=== PATIENT | male | born 1950 | race Caucasian/White ===

== ENCOUNTER → 2017-02-19 | Outpatient (CLI) | payer OTHER ==
--- NOTE | 2017-02-20 06:42 | RAD ---
Procedure: XR CHEST 2 VIEWS Exam Date: 02/19/2017 Ordering Provider: Radha Ritter Clinical Indication: HEART FAILURE Comparison: 05/17/2015 Findings: Cardiac silhouette: Enlarged Pulmonary vasculature : Central vascular congestion without baljeet pulmonary edema. Mediastinal contour: Normal Aortic contour: Aortic calcification Focal lung consolidation: None Pleural effusion: None Pneumothorax: None Acute bony or soft tissue abnormality: None Impression: 1. No acute abnormalities in the chest. 2. Cardiomegaly. Electronically signed by: Jason Church MD 02/20/2017 6:41 AM CDT
== END | disposition home or self-care (01) ==
LOC: YCFC.O 16:31
PROVIDERS: ATTEND Nurse Practitioner Family
DX: I50.9 Heart failure, unspecified (principal)

== ENCOUNTER → 2017-05-08 | Outpatient (CLI) | payer MEDICARE, OTHER ==
--- NOTE | 2017-05-09 05:46 | RAD ---
Procedure: XR CHEST 2 VIEWS Exam date: 05/08/2017 1:13 PM CDT Ordering Provider: BRIAN Campos Clinical Indication: DYSPNEA Comparison: February 19, 2017 Findings: Cardiomegaly. The lungs are clear. No pleural effusion or pneumothorax. Osseous structures are nonacute. Thoracic spondylosis. No evidence of active tuberculosis. Impression: Cardiomegaly. Otherwise, no acute cardiopulmonary process. Electronically signed by: Feliberto Ricardo MD 05/09/2017 5:45 AM CDT
== END | disposition home or self-care (01) ==
LOC: YCFC.O 12:59
PROVIDERS: ATTEND Nurse Practitioner Family
DX: R06.9 Unspecified abnormalities of breathing (principal); R06.00 Dyspnea, unspecified

== ENCOUNTER → 2017-08-04 | Outpatient (CLI) | payer MEDICARE, OTHER ==
--- NOTE | 2017-08-05 09:00 | RAD ---
EXAM DESCRIPTION: Chest,2 Views CLINICAL HISTORY: 66 years Male, CHF COMPARISON: 05/08/2017 IMPRESSION: The heart is enlarged, with mild central pulmonary vascular congestion. Moderate atherosclerotic plaque in the thoracic aorta. Mild perihilar interstitial thickening is demonstrated, most consistent with CHF with mild interstitial edema. An atypical infectious/inflammatory process may have a similar appearance. No confluent airspace consolidation, pleural effusion, or pneumothorax. Multilevel thoracic spondylosis. No acute osseous abnormality. Electronically signed by: Joseph Herring MD 08/05/2017 8:58 AM [employer]
== END | disposition home or self-care (01) ==
LOC: YCFC.O 11:17
PROVIDERS: ATTEND Nurse Practitioner Family
DX: I50.9 Heart failure, unspecified (principal)

== ENCOUNTER → 2018-01-06 | Outpatient (CLI) | payer MEDICARE, OTHER ==
--- NOTE | 2018-01-06 16:09 | CT ---
EXAM DESCRIPTION: Sinuses: Computed Tomography. CLINICAL HISTORY: CHRONIC SINUSITIS COMPARISON: None Available. TECHNIQUE: Spiral, axial 2.5 mm scans through the maxillofacial bones without contrast. Coronal and sagittal 2.0 reconstructions. Total Exam DLP: 235.87 mGy-cm. This exam was performed according to our departmental CT dose-optimization program which includes automated exposure control, adjustment of the mA and/or kV according to patient size and/or use of iterative reconstruction technique; to reduce radiation dose to as low as reasonably achievable (ALARA). FINDINGS: Complete opacification of the left maxillary antrum with soft tissue expanding into the anterior left ethmoid air cells and the left nasal passageway. Widening of the medial ostium with complete obstruction of the left ostiomeatal unit. Minimal mucoperiosteal thickening right antrum with narrowing of the right ostiomeatal unit. Remaining ethmoid air cells are patent. Mucoperiosteal thickening bilateral frontal air cells without air-fluid levels. Sphenoid air cells are well aerated bilaterally and the sphenoid nasal ostia are patent. Included mastoid air cells are well aerated. Anterior superior left nasal passage passageway partially obstructed. Posterior septum deviated to the left with inferior septal spur impressing on the inferior left turbinate. Anterior septum also deviated to the left. Superior bilateral turbinates are rudimentary bilaterally. Remaining turbinates demonstrate moderate hypertrophy and significant narrowing of the nasal passageway. Radha bullosa in the right middle turbinate. No other bone destruction. IMPRESSION: 1. Acute and chronic sinusitis and complete opacification of the left maxillary antrum with soft tissue extending through the widened ostium into the anterior left ethmoid air cells and the left nasal passage. Complete obstruction of the left ostiomeatal unit. Minimal disease right maxillary antrum with partial obstruction of the right ostiomeatal unit. 2. Chronic sinusitis frontal air cells with sphenoid air cells well aerated. Remaining ethmoid air cells well aerated. 3. Deviation of the septum to the left posteriorly more than anteriorly. Rudimentary superior turbinates. Left septal spur impinges the left middle turbinate. Radha bullosa enlarging the right middle turbinate. Significant bilateral nasal passageway narrowing. Electronically signed by: Miguel Laws MD 01/06/2018 4:07 PM CDT
== END ==
LOC: CT 10:00
PROVIDERS: ATTEND Otolaryngology
DX: J32.8 Other chronic sinusitis (principal)

== ENCOUNTER → 2020-09-20 | Outpatient (CLI) | payer MEDICARE, OTHER | LOC: ECHO 09:07 | PROVIDERS: ATTEND Nurse Practitioner Family | DX: R60.9 Edema, unspecified (principal); I51.7 Cardiomegaly; I31.3 Pericardial effusion (noninflammatory); I34.0 Nonrheumatic mitral (valve) insufficiency; I34.8 Other nonrheumatic mitral valve disorders ==

== ENCOUNTER → 2020-10-13 | Outpatient (CLI) | payer OTHER, MEDICARE ==
--- NOTE | 2020-10-16 07:55 | US ---
EXAM DESCRIPTION: Carotid Duplex: ULTRASOUND. CLINICAL HISTORY: 69 years Male transient cerebral ischemia COMPARISON: None. TECHNIQUE: Transcutaneous scanning utilizing esqueda-scale and Doppler modes to evaluate the bilateral carotid systems and vertebral arteries. Percentage of diameter of stenosis or no stenosis recorded will be based upon NASCET criteria. FINDINGS: Peak systolic/end diastolic velocities (CM-Sec) CCA Right 124/11 Left 101/13. ICA Right proximal 42/9, distal 45/12. Left proximal 47/10, Distal 57/17. Vertebral Right 36/7 Left 34/13. ECA (PS Only) Right 126 left 125. ICA/CCA peak systolic velocity ratio: Right 0.4 Left 0.6 ICA/CCA end diastolic velocity ratio: Right 1.0 Left 1.3 Vertebral arteries: antegrade flow. Comments: Atherosclerotic calcification bilateral bifurcations. Area and diameter stenosis right common carotid bulb less than 20%. IMPRESSION: 1. Doppler evaluation of the bilateral carotid systems and vertebral arteries shows no hemodynamically significant stenoses (less than 70%). 2. No significant amount of plaque in the carotid arteries bilaterally. Bilateral vertebral arteries showed antegrade-cephalad flow. Electronically signed by: Miguel Laws MD 10/16/2020 7:53 AM [facility]
== END ==
LOC: US 09:57
PROVIDERS: ATTEND Nurse Practitioner Family
DX: G45.9 Transient cerebral ischemic attack, unspecified (principal)